=== PATIENT | female | born 1945 ===

== ENCOUNTER 2016-08-17 17:05 | Emergency (ER) | payer MEDICARE, MEDICAID ==
[2016-08-17 17:40] VITALS: BP 130/63; PULSE 78; RESP 18; TEMP 97.8; O2SAT 99
--- NOTE | 2016-08-17 19:12 | ED PDOC ---
Lower Extremity Pain/Injury Time Seen by Provider: 08/17/16 18:02 Chief Complaint (Nursing): Lower Extremity Problem/Injury Chief Complaint (Provider): Hip and knee pain History Per: Patient Additional Complaint(s): 71 yo female, reports a PMH of DM, HTN and Asthma, presents to ED with complaint sof right hip pain that radiates down right leg, into knee. Pain is ot present at rest, wore with ambulation. Patient started on Gabapentin. Past Medical History Reviewed: Nursing Documentation, Vital Signs Vital Signs: Last Vital Signs Temp 97.8 F 08/17/16 17:37 Pulse 78 08/17/16 17:37 Resp 18 08/17/16 17:37 BP 130/63 08/17/16 17:37 Pulse Ox 99 08/17/16 17:37 - Medical History PMH: Asthma, Diabetes, HTN - Family History Family History: States: Unknown Family Hx - Living Arrangements Living Arrangements: With Family - Social History Current smoker - smoking cessation education provided: No Alcohol: None Drugs: Denies - Home Medications Home Medications: Ambulatory Orders Medication Instructions Recorded Ibuprofen [Motrin] 600 mg PO Q6 #20 tab 08/17/16 - Allergies Allergies/Adverse Reactions: Allergies Allergy/AdvReac Type Severity Reaction Status Date / Time FISH Allergy SHORTNESS Verified 08/17/16 17:37 OF BREATH Wells Criteria for PE - Wells Criteria for Pulmonary Embolism Clinical Signs and Symptoms of DVT: No P.E is #1 Diagnosis, or Equally Likely: No Heart Rate >100: No Immobilization at least 3 days;Surgery previous 4 weeks: No Previous, objectively diagnosed PE or DVT: No Hemoptysis: No Malignancy w/treatment within 6 months, or palliative: No Total Score: 0 Review of Systems ROS Statement: Except As Marked, All Systems Reviewed And Found Negative Musculoskeletal: Positive for: Leg Pain Physical Exam - Reviewed Nursing Documentation Reviewed: Yes Vital Signs Reviewed: Yes - Physical Exam Appears: Positive for: Well, Non-toxic, No Acute Distress Head Exam: Positive for: ATRAUMATIC, NORMAL INSPECTION, NORMOCEPHALIC Skin: Positive for: Normal Color, Warm, DRY Eye Exam: Positive for: EOMI, Normal appearance, PERRL ENT: Positive for: Normal ENT Inspection Neck: Positive for: Normal, Painless ROM Cardiovascular/Chest: Positive for: Regular Rate, Rhythm Respiratory: Positive for: CNT, Normal Breath Sounds Gastrointestinal/Abdominal: Positive for: Normal Exam, Bowel Sounds, Soft Back: Positive for: Normal Inspection Extremity: Positive for: Other (pain incresed with internal rotation of the hip) . Negative for: Deformity, Swelling Neurologic/Psych: Positive for: Alert, Oriented - ECG O2 Sat by Pulse Oximetry: 99 Medical Decision Making Medical Decision Making: Medicated with Motrin and Pt reported relief obtained XR of Hip (+) DJD, as read by JACKSON Knee: NAd, as read by JACKSON Pt educated on arthritis of the hip and demonstrated full understanding Given ortho for follow up, advised to return to ED if at anytime condition worsens. Disposition - Clinical Impression Clinical Impression: Hip pain, Arthritis - Patient ED Disposition Is Patient to be Admitted: No - Disposition Disposition: Routine/Home Disposition Time: 23:58 Condition: GOOD Prescriptions: Ibuprofen [Motrin] 600 mg PO Q6 #20 tab Instructions: Arthritis (ED)
--- NOTE | 2016-08-18 08:45 | RAD ---
PROCEDURE: Right Hip Radiographs. HISTORY: pain COMPARISON: None. FINDINGS: BONES: Normal. No fracture. JOINTS: Normal. SOFT TISSUES: Normal. OTHER FINDINGS: None. IMPRESSION: No radiographic evidence of acute fracture or dislocation. If clinically warranted further assessment by MRI may be obtained.
--- NOTE | 2016-08-18 08:47 | RAD ---
PROCEDURE: Right Knee Radiographs. HISTORY: pain COMPARISON: None. FINDINGS: BONES: Normal. No fracture. JOINTS: Normal. No osteoarthritis. JOINT EFFUSION: None. OTHER FINDINGS: Mild soft tissue swelling seen at the anterior aspect of the right knee. IMPRESSION: No evidence of acute fracture or dislocation.
== END 2016-08-17 21:37 | disposition home or self-care (01) ==
LOC: H.ER 17:05
DX: M25.551 Pain in right hip (principal); M25.561 Pain in right knee

== ENCOUNTER 2017-05-18 19:21 | Inpatient (IN) | payer MEDICARE, MEDICAID ==
[2017-05-18] MEDS ORDERED: Albuterol-Ipratrop 3 mg / 0.5 (3 ml) UD ONE ×2 (20:01→20:44)
[2017-05-18] MEDS ORDERED: Albuterol-Ipratrop 3 mg / 0.5 (3 ml) UD INH STA ×2 (20:04→20:05)
--- NOTE | 2017-05-18 20:07 | ED PDOC ---
HPI: SOB/CHF/COPD Time Seen by Provider: 05/18/17 19:53 Chief Complaint (Nursing): Respiratory Distress Chief Complaint (Provider): shortness of breath History Per: Patient History/Exam Limitations: no limitations Onset/Duration Of Symptoms: Days (x2) Current Symptoms Are (Timing): Still Present Additional Complaint(s): 71 year old female with previous medical history of asthma, who presents to the emergency department with a complaint of shortness of breath associated with chest pain from productive cough with yellow sputum ongoing since yesterday. PMD: Tyrell Olguin MD Past Medical History Reviewed: Historical Data, Nursing Documentation, Vital Signs Vital Signs: Last Vital Signs Temp 99.3 F 05/18/17 19:29 Pulse 90 05/18/17 19:29 Resp 18 05/18/17 20:25 BP 105/54 L 05/18/17 19:29 Pulse Ox 94 L 05/18/17 20:25 - Medical History PMH: Asthma, Diabetes, HTN - Family History Family History: States: Unknown Family Hx - Home Medications Home Medications: Ambulatory Orders Medication Instructions Recorded Ibuprofen [Motrin] 600 mg PO Q6 #20 tab 08/17/16 - Allergies Allergies/Adverse Reactions: Allergies Allergy/AdvReac Type Severity Reaction Status Date / Time FISH Allergy RASH Verified 05/18/17 19:29 Review of Systems ROS Statement: Except As Marked, All Systems Reviewed And Found Negative Respiratory: Positive for: Cough (yellow), Shortness of Breath, Pleuritic Pain, Sputum Physical Exam - Reviewed Nursing Documentation Reviewed: Yes Vital Signs Reviewed: Yes - Physical Exam Appears: Positive for: Non-toxic, Uncomfortable Head Exam: Positive for: ATRAUMATIC, NORMAL INSPECTION, NORMOCEPHALIC Cardiovascular/Chest: Positive for: Regular Rate, Rhythm, Chest Non Tender Respiratory: Positive for: Decreased Breath Sounds, Respiratory Distress (mild) , Other (pleuritic chest pain). Negative for: Normal Breath Sounds Gastrointestinal/Abdominal: Positive for: Normal Exam, Soft. Negative for: Tenderness Neurologic/Psych: Positive for: Alert (x3), Oriented - Laboratory Results Result Diagrams: 05/18/17 20:52 05/18/17 20:52 - ECG Interpretation Of ECG: SR @ 82, fusion complexes. O2 Sat by Pulse Oximetry: 93 (RA) Pulse Ox Interpretation: Abnormal - Radiology X-Ray: Interpreted by Me X-Ray Interpretation: No Acute Disease - Progress Re-evaluation Time: 21:45 Condition: Improving,but remains with symptoms Medical Decision Making Medical Decision Making: Initial Impression: Asthma exacerbation Initial Plan: * EKG * CMP * Troponin I * CBC * PTT * PT * CXR * Duoneb 3ml INH * Solu-medrol 125mg IVP * Blood culture Case discussed with Dr. Olguin, recommends admission under Dr. Villasenor's service. Scribe Attestation: Documented by Karrie Arellano, acting as a scribe for Callie Tejada MD. Provider Scribe Attestation: All medical record entries made by the Scribe were at my direction and personally dictated by me. I have reviewed the chart and agree that the record accurately reflects my personal performance of the history, physical exam, medical decision making, and the department course for this patient. I have also personally directed, reviewed, and agree with the discharge instructions and disposition. Disposition - Clinical Impression Clinical Impression: Asthma exacerbation, Renal insufficiency - Patient ED Disposition Is Patient to be Admitted: Yes - Disposition Disposition Time: 22:06 Condition: STABLE Forms: [employer] (Macedonian) - Pt Status Changed To: Hospital Disposition Of: Observation - POA Present On Arrival: None
[2017-05-18 21:21] LABS: BASO % 0.3 % (0.0-2.0); EOS # 0.1 K/uL (0.0-0.7); EOS % 2.1 % (0.0-4.0); LYMPH # 1.4 K/uL (1.0-4.3); LYMPH % 26.8 % (20.0-40.0); MEAN CELL VOLUME 81.3 fl (81.0-99.0); MEAN CORPUSCULAR HEMOGLOBIN 26.3 pg (27.0-31.0); MEAN CORPUSCULAR HGB CONC 32.4 g/dL (33.0-37.0); MEAN PLATELET VOLUME 8.8 fl (7.2-11.7); MONO # 0.7 K/uL (0.0-0.8); MONO % 12.4 % (0.0-10.0); NEUT # 3.1 K/uL (1.8-7.0); NEUT % 58.4 % (50.0-75.0); NRBC % 0.1 % (0.0-0.0); RBC 4.18 Mil/uL (3.80-5.20); RED CELL DISTRIBUTION WIDTH 14.2 % (11.5-14.5); WHITE BLOOD COUNT 5.3 K/uL (4.8-10.8)
[2017-05-18 21:24] LABS: ALBUMIN 4.4 g/dL (3.5-5.0); CALCIUM 9.3 mg/dL (8.4-10.2)
[2017-05-18 21:34] LABS: ALB/GLOB RATIO 1.1 (1.0-2.1)
[2017-05-18 21:35] LABS: TROPONIN I 0.021 ng/mL (0.00-0.120)
[2017-05-18 21:57] LABS: INR 1.1 (0.9-1.2); PARTIAL THROMBOPLASTIN TIME 26.4 Seconds (25.6-37.1); PROTHROMBIN TIME 12.1 Seconds (9.8-13.1)
[2017-05-18] MEDS ORDERED: Sodium Chloride 0.9% 1,000 ML IV STA (22:37)
[2017-05-18] MEDS ORDERED: Dextrose 5%/0.45% NS 1,000 ML IV SCH (23:45)
[2017-05-19] MEDS ORDERED: methylPREDNISolone 60 MG in Sodium Chloride 0.9% 50 ML IVPB SCH (01:00)
[2017-05-19] MEDS ORDERED: Insulin Regular 100 units/ml SC ONE (05:15)
[2017-05-19] MEDS ORDERED: Insulin Regular 100 units/ml SC SCH (07:30)
[2017-05-19] MEDS: Albuterol-Ipratrop 3 mg / 0.5 (3 ml) UD INH SCH ×4 (07:49→19:27)
[2017-05-19] MEDS: Sodium Chloride 0.9% 1,000 ML IV SCH ×2 (08:30→21:02)
[2017-05-19] MEDS: Insulin Regular 100 units/ml SC SCH ×3 (08:40→21:38)
[2017-05-19] MEDS ORDERED: METFORMIN HCL 1000 MG PO SCH (09:00)
[2017-05-19 09:29] LABS: HEMOGLOBIN 10.9 g/dL (12.0-16.0); MEAN CELL VOLUME 81.9 fl (81.0-99.0); MEAN CORPUSCULAR HEMOGLOBIN 26.5 pg (27.0-31.0); MEAN CORPUSCULAR HGB CONC 32.4 g/dL (33.0-37.0); RBC 4.12 Mil/uL (3.80-5.20); RED CELL DISTRIBUTION WIDTH 14.2 % (11.5-14.5); WHITE BLOOD COUNT 4.7 K/uL (4.8-10.8)
[2017-05-19] MEDS: GlipiZIDE 10 mg SR Tab PO SCH (09:31)
[2017-05-19] MEDS: Patient's Own Med (Ranolazine [Ranexa] 500 MG) PO SCH ×2 (09:31→16:04)
[2017-05-19] MEDS: Fluticasone-Salmeterol 500-50mcg Diskus IH SCH ×2 (09:36→16:05)
[2017-05-19] MEDS: Pantoprazole 40 mg EC Tab PO SCH (09:40)
[2017-05-19 09:58] LABS: CALCIUM 8.7 mg/dL (8.4-10.2)
--- NOTE | 2017-05-19 12:43 | US ---
PROCEDURE: Ultrasound of the Kidneys HISTORY: GENIE COMPARISON: 10/22/2012. TECHNIQUE: Sonogram of the kidneys. FINDINGS: RIGHT KIDNEY: Measures: 8 point a cm. Normal in size, contour and echogenicity. No stone, solid mass lesion or hydronephrosis visualized. LEFT KIDNEY: Measures: 9.4 cm. Normal in size, contour and echogenicity. No stone, solid mass lesion or hydronephrosis visualized. OTHER FINDINGS: None. IMPRESSION: Unremarkable renal sonogram.
--- NOTE | 2017-05-19 13:24 | RAD ---
HISTORY: SOB COMPARISON: 11/12/2011 FINDINGS: LUNGS: No active pulmonary disease. PLEURA: No significant pleural effusion identified, no pneumothorax apparent. CARDIOVASCULAR: Normal. OSSEOUS STRUCTURES: No significant abnormalities. VISUALIZED UPPER ABDOMEN: Normal. OTHER FINDINGS: None. IMPRESSION: No active disease.
--- NOTE | 2017-05-19 16:18 | CP.PCM.HP ---
History of Present Illness - History of Present Illness History of Present Illness: 71 yr old F presented to ED with complaint of SOB, productive cough of yellow sputum x 2 days. PMHx includes intermittent asthma, HTN and DM type 2. Denies chest pain, weakness, dizziness, syncope, nausea or vomiting. Denies fever, chills, arthralgia. Tolerating PO diet. PMD: Tyrell Velazquez PMHx: intermittent asthma, HTN and DM type 2 SurgHx: appendectomy, right foot surgery FMHx: non-contributory SocHx: denies smoking, Etoh or drugs Medications: see medication reconciliation Allergies: NKDA Present on Admission - Present on Admission Any Indicators Present on Admission: No History of DVT/PE: No History of Uncontrolled Diabetes: Yes Urinary Catheter: No Decubitus Ulcer Present: No History Surgical Site Infection Following: None Review of Systems - Review of Systems All systems: reviewed and no additional remarkable complaints except (except for what is mentioned in the HPI) - Constitutional Constitutional: absent: Chills, Weakness - EENT Eyes: absent: Change in Vision Ears: absent: Dizziness Nose/Mouth/Throat: absent: Nasal Discharge - Cardiovascular Cardiovascular: absent: Chest Pain, Leg Edema, Palpitations - Respiratory Respiratory: Cough (productive of yellow sputum), Dyspnea. absent: Hemoptysis - Gastrointestinal Gastrointestinal: absent: Diarrhea, Nausea - Genitourinary Genitourinary: absent: Difficulty Urinating, Dysuria - Musculoskeletal Musculoskeletal: absent: Arthralgias - Integumentary Integumentary: absent: Bleeding Lesions - Neurological Neurological: absent: Weakness - Endocrine Endocrine: absent: Polyuria - Hematologic/Lymphatic Hematologic: absent: Easy Bleeding, Easy Bruising Past Patient History - Past Medical History & Family History Past Medical History?: Yes - Past Social History Smoking Status: Never Smoked - CARDIAC Hx Cardiac Disorders: Yes Hx Hypercholesterolemia: Yes Hx Hypertension: Yes - PULMONARY Hx Respiratory Disorders: Yes Hx Asthma: Yes - NEUROLOGICAL Hx Neurological Disorder: No - HEENT Hx HEENT Problems: No - RENAL Hx Chronic Kidney Disease: No - ENDOCRINE/METABOLIC Hx Endocrine Disorders: Yes Hx Diabetes Mellitus Type 2: Yes - HEMATOLOGICAL/ONCOLOGICAL Hx Blood Disorders: No - INTEGUMENTARY Hx Dermatological Problems: No - MUSCULOSKELETAL/RHEUMATOLOGICAL Hx Musculoskeletal Disorders: Yes Hx Arthritis: Yes Hx Falls: Yes - GASTROINTESTINAL Hx Gastrointestinal Disorders: No - GENITOURINARY/GYNECOLOGICAL Hx Genitourinary Disorders: No - PSYCHIATRIC Hx Psychophysiologic Disorder: No Hx Substance Use: No - SURGICAL HISTORY Hx Surgeries: Yes Hx Appendectomy: Yes Hx Section: Yes (x2) Other/Comment: right foot surgery as per PT - ANESTHESIA Hx Anesthesia: Yes Hx Anesthesia Reactions: No Hx Malignant Hyperthermia: No Has any member of the family had a problem w/ anesthesia?: No Meds Allergies/Adverse Reactions: Allergies Allergy/AdvReac Type Severity Reaction Status Date / Time FISH Allergy RASH Verified 05/18/17 19:29 Physical Exam - Constitutional Appears: No Acute Distress - Head Exam Head Exam: ATRAUMATIC, NORMOCEPHALIC - Eye Exam Eye Exam: EOMI - ENT Exam ENT Exam: Mucous Membranes Moist - Neck Exam Neck exam: Positive for: Full Rom - Respiratory Exam Respiratory Exam: Rhonchi (diffuse), Wheezes (expiratory), NORMAL BREATHING PATTERN (on 2L supplemental O2 via nasal cannula). absent: Rales - Cardiovascular Exam Cardiovascular Exam: REGULAR RHYTHM, +S1, +S2 - GI/Abdominal Exam GI & Abdominal Exam: Normal Bowel Sounds, Soft. absent: Tenderness - Extremities Exam Extremities exam: Positive for: full ROM, pedal edema (trace) - Neurological Exam Neurological exam: Alert, CN II-XII Intact, Oriented x3 - Psychiatric Exam Psychiatric exam: Normal Affect, Normal Mood - Skin Skin Exam: Dry, Warm Results - Vital Signs Recent Vital Signs: Last Vital Signs Temp 98 F 05/19/17 16:08 Pulse 83 05/19/17 16:08 Resp 18 05/19/17 16:08 BP 92/50 L 05/19/17 16:08 Pulse Ox 94 L 05/19/17 16:08 - Labs Result Diagrams: 05/19/17 09:18 05/19/17 09:18 Labs: Laboratory Results - last 24 hr 05/18/17 05/18/17 05/18/17 20:52 20:52 20:52 WBC 5.3 RBC 4.18 Hgb 11.0 L Hct 33.9 L MCV 81.3 D MCH 26.3 L MCHC 32.4 L RDW 14.2 Plt Count 139 MPV 8.8 Neut % (Auto) 58.4 Lymph % (Auto) 26.8 Harney % (Auto) 12.4 H Eos % (Auto) 2.1 Baso % (Auto) 0.3 Neut # 3.1 Lymph # 1.4 Harney # 0.7 Eos # 0.1 Baso # 0.0 PT 12.1 INR 1.1 APTT 26.4 Sodium 136 Potassium 4.3 Chloride 102 Carbon Dioxide 20 L Anion Gap 18 BUN 26 H Creatinine 2.7 H Est GFR ( Amer) 21 Est GFR (Non-Af Amer) 17 POC Glucose (mg/dL) Random Glucose 156 H Calcium 9.3 Total Bilirubin 0.6 AST 33 ALT 30 Alkaline Phosphatase 83 Troponin I 0.0210 Total Protein 8.3 H Albumin 4.4 Globulin 3.9 Albumin/Globulin Ratio 1.1 05/19/17 05/19/17 05/19/17 01:23 05:02 07:12 WBC RBC Hgb Hct MCV MCH MCHC RDW Plt Count MPV Neut % (Auto) Lymph % (Auto) Harney % (Auto) Eos % (Auto) Baso % (Auto) Neut # Lymph # Harney # Eos # Baso # PT INR APTT Sodium Potassium Chloride Carbon Dioxide Anion Gap BUN Creatinine Est GFR ( Amer) Est GFR (Non-Af Amer) POC Glucose (mg/dL) 307 H 464 H* 453 H* Random Glucose Calcium Total Bilirubin AST ALT Alkaline Phosphatase Troponin I Total Protein Albumin Globulin Albumin/Globulin Ratio 05/19/17 05/19/17 05/19/17 09:18 09:18 12:16 WBC 4.7 L RBC 4.12 Hgb 10.9 L Hct 33.7 L MCV 81.9 MCH 26.5 L MCHC 32.4 L RDW 14.2 Plt Count 136 MPV Neut % (Auto) Lymph % (Auto) Harney % (Auto) Eos % (Auto) Baso % (Auto) Neut # Lymph # Harney # Eos # Baso # PT INR APTT Sodium 134 Potassium 4.4 Chloride 100 Carbon Dioxide 14 L Anion Gap 24 H BUN 33 H Creatinine 2.3 H Est GFR ( Amer) 25 Est GFR (Non-Af Amer) 21 POC Glucose (mg/dL) 453 H* Random Glucose 552 H* D Calcium 8.7 Total Bilirubin AST ALT Alkaline Phosphatase Troponin I Total Protein Albumin Globulin Albumin/Globulin Ratio 05/19/17 15:50 WBC RBC Hgb Hct MCV MCH MCHC RDW Plt Count MPV Neut % (Auto) Lymph % (Auto) Harney % (Auto) Eos % (Auto) Baso % (Auto) Neut # Lymph # Harney # Eos # Baso # PT INR APTT Sodium Potassium Chloride Carbon Dioxide Anion Gap BUN Creatinine Est GFR ( Amer) Est GFR (Non-Af Amer) POC Glucose (mg/dL) 273 H Random Glucose Calcium Total Bilirubin AST ALT Alkaline Phosphatase Troponin I Total Protein Albumin Globulin Albumin/Globulin Ratio Assessment & Plan - Assessment and Plan (Free Text) Assessment: 71 yr old F admitted fo asthma exacerbation, with history of intermittent asthma and uncontrolled DM type 2. Now with GENIE unknown etiology. -admit to med/surg -duonebs, IV steroids, singulair, supplemetal O2 via nasal cannula to keep SpO2 > 92% -d/c HCTZ, d/c metformin, d/c aldactone -insulin coverage scale -IVF, renal US -f/u next day CBC, CMP - Date & Time Date: 05/19/17 Time: 10:00
--- NOTE | 2017-05-19 16:34 | CARD ---
APPROVED REPORT EKG Measurement Heart [id number] <Conclusion> Sinus rhythm artifacts Otherwise normal ECG
[2017-05-19] MEDS: MethylPREDNISolone 40 mg Vial IV SCH (21:03)
[2017-05-19] MEDS: Insulin Detemir 100 Units/ml Inj SC SCH (21:41)
[2017-05-20] MEDS: Sodium Chloride 0.9% 1,000 ML IV SCH ×3 (05:41→21:55)
[2017-05-20 07:13] LABS: HEMOGLOBIN 9.9 g/dL (12.0-16.0); MEAN CELL VOLUME 81.3 fl (81.0-99.0); MEAN CORPUSCULAR HEMOGLOBIN 26.8 pg (27.0-31.0); RBC 3.69 Mil/uL (3.80-5.20); RED CELL DISTRIBUTION WIDTH 14.1 % (11.5-14.5); WHITE BLOOD COUNT 10.3 K/uL (4.8-10.8)
[2017-05-20 07:49] LABS: ALBUMIN 3.5 g/dL (3.5-5.0); CALCIUM 8.1 mg/dL (8.4-10.2)
[2017-05-20] MEDS: Albuterol-Ipratrop 3 mg / 0.5 (3 ml) UD INH SCH ×4 (08:03→19:49)
[2017-05-20] MEDS: Insulin Regular 100 units/ml SC SCH ×4 (08:04→22:03)
[2017-05-20] MEDS: Patient's Own Med (Ranolazine [Ranexa] 500 MG) PO SCH ×2 (08:39→16:26)
[2017-05-20] MEDS: Pantoprazole 40 mg EC Tab PO SCH (08:39)
[2017-05-20] MEDS: MethylPREDNISolone 40 mg Vial IV SCH (08:40)
[2017-05-20] MEDS: Fluticasone-Salmeterol 500-50mcg Diskus IH SCH ×2 (08:41→16:21)
[2017-05-20] MEDS: GlipiZIDE 10 mg SR Tab PO SCH (08:41)
--- NOTE | 2017-05-20 16:41 | CP.PCM.PN ---
Subjective - Date & Time of Evaluation Date of Evaluation: 05/20/17 Time of Evaluation: 11:35 - Subjective Subjective: Patient seen and examined at bedside with attending-Dr. Villasenor. Awake, alert, reports some improvement in SOB. Wheezing persists. Denies chest pain or weakness. Objective - Vital Signs/Intake and Output Vital Signs (last 24 hours): Temp Pulse Resp BP Pulse Ox 97 F L 82 20 100/51 L 98 05/20/17 16:04 05/20/17 16:04 05/20/17 16:04 05/20/17 16:04 05/20/17 16:04 - Medications Medications: Current Medications Acetaminophen (Tylenol 325mg Tab) 650 mg PO Q6 PRN PRN Reason: Pain, moderate (4-7) Albuterol/Ipratropium (Duoneb 3 Mg/0.5 Mg (3 Ml) Ud) 3 ml INH RQID [facility] Last Admin: 05/20/17 15:43 Dose: 3 ml Atorvastatin Calcium (Lipitor) 80 mg PO DAILY [facility] Last Admin: 05/20/17 08:40 Dose: 80 mg Gabapentin (Neurontin) 100 mg PO BID [facility] Last Admin: 05/20/17 16:26 Dose: 100 mg Glipizide (Glucotrol Xl) 10 mg PO BRK [facility] Last Admin: 05/20/17 08:41 Dose: 10 mg Home Med (Ranolazine [Ranexa]) 500 mg PO BID [facility] Last Admin: 05/20/17 16:26 Dose: 500 mg Sodium Chloride (Sodium Chloride 0.9%) 1,000 mls @ 100 mls/hr IV .Q10H [facility] Stop: 05/21/17 10:40 Last Admin: 05/20/17 13:00 Dose: 100 mls/hr Insulin Detemir (Levemir) 15 units SC HS [facility] Last Admin: 05/19/17 21:41 Dose: 15 units Insulin Human Regular (Humulin R) 0 units SC ACHS [facility] PRN Reason: Protocol Last Admin: 05/20/17 16:24 Dose: 10 units Montelukast Sodium (Singulair) 10 mg PO HS [facility] Last Admin: 05/19/17 21:40 Dose: 10 mg Pantoprazole Sodium (Protonix Ec Tab) 40 mg PO DAILY [facility] Last Admin: 05/20/17 08:39 Dose: 40 mg Prednisone (Prednisone Tab) 20 mg PO DAILY [facility] Fluticasone/Salmeterol (Advair Diskus 500/50) 1 puff IH BID [facility] Last Admin: 05/20/17 16:21 Dose: 1 puff Sertraline HCl (Zoloft) 50 mg PO DAILY [facility] Last Admin: 05/20/17 08:39 Dose: 50 mg Sitagliptin Phosphate (Januvia) 25 mg PO DAILY [facility] Last Admin: 05/20/17 08:39 Dose: 25 mg Valsartan (Diovan) 80 mg PO DAILY [facility] Last Admin: 05/20/17 08:41 Dose: 80 mg - Labs Labs: 05/20/17 06:00 05/20/17 06:00 PT 12.1 Seconds (9.8-13.1) 05/18/17 20:52 INR 1.1 (0.9-1.2) 05/18/17 20:52 APTT 26.4 Seconds (25.6-37.1) 05/18/17 20:52 - Constitutional Appears: No Acute Distress - Head Exam Head Exam: ATRAUMATIC, NORMOCEPHALIC - Eye Exam Eye Exam: EOMI - ENT Exam ENT Exam: Mucous Membranes Moist - Neck Exam Neck Exam: Full ROM - Respiratory Exam Respiratory Exam: Rhonchi (diffuse), Wheezes (expiratory), NORMAL BREATHING PATTERN - Cardiovascular Exam Cardiovascular Exam: REGULAR RHYTHM, +S1, +S2 - GI/Abdominal Exam GI & Abdominal Exam: Soft (obese), Normal Bowel Sounds. absent: Tenderness - Extremities Exam Extremities Exam: Full ROM. absent: Pedal Edema - Neurological Exam Neurological Exam: Alert, Awake, Oriented x3 - Psychiatric Exam Psychiatric exam: Normal Affect, Normal Mood - Skin Skin Exam: Dry, Warm Assessment and Plan - Assessment and Plan (Free Text) Assessment: 71 yr old F admitted fo asthma exacerbation, with history of intermittent asthma and uncontrolled DM type 2. Now with GENIE unknown etiology. -taper steroids to PO, duonebs, singulair, supplemetal O2 via nasal cannula to keep SpO2 > 92% -insulin coverage scale -continue IVF, renal US was unremarkable and minimal improvement in GENIE with BUN /Cr 41/1.8 today -f/u next day CBC, CMP
[2017-05-20] MEDS: Insulin Detemir 100 Units/ml Inj SC SCH (22:03)
[2017-05-20] MEDS ORDERED: Dextrose 50% SYRINGE Inj (50 ml) IVP ONE (22:04)
[2017-05-21] MEDS: Sodium Chloride 0.9% 1,000 ML IV SCH (06:42)
[2017-05-21] MEDS: Albuterol-Ipratrop 3 mg / 0.5 (3 ml) UD INH SCH ×2 (07:39→11:05)
[2017-05-21 07:49] LABS: HEMOGLOBIN 9.5 g/dL (12.0-16.0); MEAN CELL VOLUME 80.9 fl (81.0-99.0); MEAN CORPUSCULAR HEMOGLOBIN 26.6 pg (27.0-31.0); MEAN CORPUSCULAR HGB CONC 32.9 g/dL (33.0-37.0); RBC 3.58 Mil/uL (3.80-5.20); RED CELL DISTRIBUTION WIDTH 14.2 % (11.5-14.5)
[2017-05-21] MEDS ORDERED: GlipiZIDE 5 mg SR Tab PO SCH (08:00)
[2017-05-21 08:02] LABS: ALBUMIN 3.2 g/dL (3.5-5.0); CALCIUM 8.4 mg/dL (8.4-10.2)
[2017-05-21] MEDS: Insulin Regular 100 units/ml SC SCH ×2 (08:16→12:21)
[2017-05-21] MEDS: Fluticasone-Salmeterol 500-50mcg Diskus IH SCH (08:36)
[2017-05-21] MEDS: Patient's Own Med (Ranolazine [Ranexa] 500 MG) PO SCH (08:38)
[2017-05-21] MEDS: Pantoprazole 40 mg EC Tab PO SCH (08:38)
[2017-05-21 08:40] VITALS: BP 101/55; PULSE 91; RESP 20; TEMP 97.9; O2SAT 95
--- NOTE | 2017-05-21 10:18 | CP.PCM.DIS ---
Provider - Provider Date of Admission: 05/18/17 22:07 Attending physician: David Villasenor MD Primary care physician: Tyrell Velazquez Time Spent in preparation of Discharge (in minutes): 30 Diagnosis - Discharge Diagnosis (1) Asthma exacerbation Status: Resolved Priority: Low (2) Acute kidney injury Status: Resolved Priority: Low Hospital Course - Lab Results Lab Results: Micro Results 05/18/17 20:45 Blood Blood Culture - Preliminary NO GROWTH AFTER 48 HOURS 05/18/17 20:20 Blood Blood Culture - Preliminary NO GROWTH AFTER 48 HOURS Most Recent Lab Values WBC 9.0 K/uL (4.8-10.8) 05/21/17 06:50 RBC 3.58 Mil/uL (3.80-5.20) L 05/21/17 06:50 Hgb 9.5 g/dL (12.0-16.0) L 05/21/17 06:50 Hct 29.0 % (34.0-47.0) L 05/21/17 06:50 MCV 80.9 fl (81.0-99.0) L 05/21/17 06:50 MCH 26.6 pg (27.0-31.0) L 05/21/17 06:50 MCHC 32.9 g/dL (33.0-37.0) L 05/21/17 06:50 RDW 14.2 % (11.5-14.5) 05/21/17 06:50 Plt Count 134 K/uL (130-400) 05/21/17 06:50 MPV 8.8 fl (7.2-11.7) 05/18/17 20:52 Neut % (Auto) 58.4 % (50.0-75.0) 05/18/17 20:52 Lymph % (Auto) 26.8 % (20.0-40.0) 05/18/17 20:52 Dougherty % (Auto) 12.4 % (0.0-10.0) H 05/18/17 20:52 Eos % (Auto) 2.1 % (0.0-4.0) 05/18/17 20:52 Baso % (Auto) 0.3 % (0.0-2.0) 05/18/17 20:52 Neut # 3.1 K/uL (1.8-7.0) 05/18/17 20:52 Lymph # 1.4 K/uL (1.0-4.3) 05/18/17 20:52 Dougherty # 0.7 K/uL (0.0-0.8) 05/18/17 20:52 Eos # 0.1 K/uL (0.0-0.7) 05/18/17 20:52 Baso # 0.0 K/uL (0.0-0.2) 05/18/17 20:52 PT 12.1 Seconds (9.8-13.1) 05/18/17 20:52 INR 1.1 (0.9-1.2) 05/18/17 20:52 APTT 26.4 Seconds (25.6-37.1) 05/18/17 20:52 Sodium 143 mmol/l (132-148) 05/21/17 06:50 Potassium 4.7 MMOL/L (3.6-5.0) 05/21/17 06:50 Chloride 112 mmol/L (98-107) H 05/21/17 06:50 Carbon Dioxide 22 mmol/L (22-30) 05/21/17 06:50 Anion Gap 14 (10-20) 05/21/17 06:50 BUN 31 mg/dl (7-17) H 05/21/17 06:50 Creatinine 1.4 mg/dl (0.7-1.2) H 05/21/17 06:50 Est GFR ( Amer) 45 05/21/17 06:50 Est GFR (Non-Af Amer) 37 05/21/17 06:50 POC Glucose (mg/dL) 117 mg/dL (65-110) H 05/21/17 05:34 Random Glucose 117 mg/dL (65-105) H 05/21/17 06:50 Hemoglobin A1c 8.6 % (4.2-6.5) H 05/20/17 10:10 Calcium 8.4 mg/dL (8.4-10.2) 05/21/17 06:50 Total Bilirubin 0.3 mg/dl (0.2-1.3) 05/21/17 06:50 AST 27 U/L (14-36) 05/21/17 06:50 ALT 34 U/L (9-52) 05/21/17 06:50 Alkaline Phosphatase 63 U/L (38-126) 05/21/17 06:50 Troponin I 0.0210 ng/mL (0.00-0.120) 05/18/17 20:52 Total Protein 6.5 G/DL (6.3-8.2) 05/21/17 06:50 Albumin 3.2 g/dL (3.5-5.0) L 05/21/17 06:50 Globulin 3.2 gm/dL (2.2-3.9) 05/21/17 06:50 Albumin/Globulin Ratio 1.0 (1.0-2.1) 05/21/17 06:50 - Hospital Course Hospital Course: 71 yr old F admitted fo asthma exacerbation, with intermittent asthma and uncontrolled DM type 2, found to have GENIE unknown etiology. Patient improved s/ p treatment with IVF, IV steroids, supplemental O2 and scheduled respiratory treatments. Patient is medically stable for discharge with instructions to follow up with PMD Tyrell Velazquez, discontinue metformin , discontinue hydrochlorothiazide, discontinue aldactone, take medications as prescribed. - Date & Time of H&P Date of H&P: 05/19/17 Time of H&P: 10:05 Discharge Exam - Head Exam Head Exam: ATRAUMATIC, NORMOCEPHALIC - Eye Exam Eye Exam: EOMI - ENT Exam ENT Exam: Mucous Membranes Moist - Neck Exam Neck exam: Full Rom - Respiratory Exam Respiratory Exam: NORMAL BREATHING PATTERN - Cardiovascular Exam Cardiovascular Exam: REGULAR RHYTHM, +S1, +S2 - GI/Abdominal Exam GI & Abdominal Exam: Normal Bowel Sounds, Soft. absent: Tenderness - Neurological Exam Neurological exam: Alert, CN II-XII Intact, Oriented x3 - Psychiatric Exam Psychiatric exam: Normal Affect, Normal Mood - Skin Skin Exam: Dry, Intact, Normal Color Discharge Plan - Discharge Medications Prescriptions: GlipiZIDE SR [Glucotrol XL] 5 mg PO BRK #30 tab Pantoprazole [Protonix EC Tab] 40 mg PO DAILY #30 ect predniSONE [predniSONE Tab] 5 mg PO DAILY #9 tab - Follow Up Plan Condition: STABLE Disposition: HOME/ ROUTINE Patient education suggested?: Yes Instructions: Asthma (DC) Additional Instructions: Follow up with PMD Tyrell eVlazquez, discontinue metformin , discontinue hydrochlorothiazide, discontinue aldactone, take medications as prescribed Referrals: David Villasenor MD [Staff Provider] - Clinical Quality Measures - Date & Time of Discharge Summary Date of Discharge Summary: 05/21/17 Time of Discharge Summary: 10:23
== END 2017-05-21 14:25 | disposition home or self-care (01) | DRG 202 ==
LOC: H.ER 19:21 → OBSVTOIN 22:07 → H.ERHOLD 22:07 → H.MEDSURG1 23:30
PROVIDERS: ADMIT Family Medicine; ATTEND Family Medicine
PROC: 3E0F7GC Introduction of Other Therapeutic Substance into Respiratory Tract, Via Natural or Artificial Opening (ICD-10-PCS; principal; 2017-05-18)
DX: J45.21 Mild intermittent asthma with (acute) exacerbation (principal); N17.9 Acute kidney failure, unspecified; R06.03 Acute respiratory distress; J44.9 Chronic obstructive pulmonary disease, unspecified; E11.65 Type 2 diabetes mellitus with hyperglycemia; E78.00 Pure hypercholesterolemia, unspecified; I10 Essential (primary) hypertension; Z90.49 Acquired absence of other specified parts of digestive tract; M19.90 Unspecified osteoarthritis, unspecified site; Z91.013 Allergy to seafood